=== PATIENT | female | born 1980 | race Caucasian/White ===

== ENCOUNTER 2022-03-26 11:23 | Emergency (ER) | payer BC ==
[~2022-03-26] VITALS: Ht 175.3 cm; Wt 140.0 kg
[2022-03-26] MEDS ORDERED: ALBU2SYR3 PO (11:36)
[2022-03-26] MEDS ORDERED: METF-1211 PO (11:36)
[2022-03-26] MEDS ORDERED: IBUPROFEN 600 MG TABLET PO ONE (13:00)
[2022-03-26 13:32] VITALS: BP 129/67
== END 2022-03-26 13:45 | disposition home or self-care (01) ==
LOC: EMS 11:23
DX: S93.402A Sprain of unspecified ligament of left ankle, initial encounter (principal); S63.502A Unspecified sprain of left wrist, initial encounter; J45.909 Unspecified asthma, uncomplicated; E11.9 Type 2 diabetes mellitus without complications; I10 Essential (primary) hypertension; Z98.890 Other specified postprocedural states; W19.XXXA Unspecified fall, initial encounter; Y93.89 Activity, other specified; Y92.89 Other specified places as the place of occurrence of the external cause; Y99.8 Other external cause status
CPT/HCPCS: 99284; 73110-TC; 73610-TC; Z7502; Z7610